=== PATIENT | female | born 1955 | race Caucasian/White ===

== ENCOUNTER → 2018-04-03 10:47 | Outpatient (CLI) | payer MEDICAID ==
[2015-07-27 10:47] VITALS: BMI 43.3
[~2018-04-03 10:47] MED LIST: ARMOUR THYROID90 MG PO; CATAPRES TTS-10.1 MG TD; GLUCOPHAGE1000 MG PO; HYDROCHLOROTH12.5 M1 PO; HYDROCODONE-APA1 TAB PO; KLONOPIN0.5 MG PO; MIRAPEX1 MG PO; MS CONTIN15 MG PO; NEURONTIN 300300 MG PO; NORVASC5 MG PO; OXYBUTYNIN CHLOR5 MG PO; ROBAXIN-750750 MG PO; SINEMET CR 50-1 EACH; VALIUM5 MG PO; VITAMIN B-12100 MCG PO; VITAMIN D10000 UNI1 PO; ZOLOFT100 MG PO; ZYLOPRIM100 MG PO
== END | disposition home or self-care (01) ==
LOC: D.HCCARDIO 10:30
DX: I20.9 Angina pectoris, unspecified (principal)

== ENCOUNTER 2018-04-18 06:16 | Outpatient (CLI) | payer MEDICAID ==
[~2018-04-18] VITALS: Ht 165.1 cm; Wt 112.3 kg
--- NOTE | ~2018-04-18 | HEMODYNAMI ---
PATIENT:KAYE ALAN MEDICAL RECORD: [id number] : 53 LOCATION:[facility] ADMISSION DATE: 04/18/18 Generatedon:04/18/20188:05 Patient name: KAYE ALAN Patient #: [id number] SSN: : 1955 Date of study: 04/18/2018 Page: Of Hemodynamic Procedure Report Patient Data Patient Demographics Procedure consent was obtained First Name: KAYE Gender: Female Last Name: DAYANNA : 1955 Middle Initial: L Age: 62 year(s) Patient #: [id number] Race: Unknown Additional ID: [id number] Contact details Address: [address] [place] [address] [address] State: [place] City: [facility] Zip code: [address] Past Medical History Allergies Allergen Reaction Date Comments Reported Penicillins 04/18/2018 Admission Admission Data Admission Date: 04/18/2018 Admission Time: 6:16 Height (in.): 65 BSA: 2.16 (m2) Height (cm.): 165.1 BMI: 40.77 (kg/m2) Weight (lbs.): 245 Weight (kg.): 111.13 Lab Results Lab Result Date: 04/18/2018 Lab Result Time: 0:00 Biochemistry Name Units Result Min Max BUN mg/dl 15 --(--*-)-- 7 18 Creatinine mg/dl 0.7 --(*---)-- 0.6 1.3 CBC Name Units Result Min Max Hemoglobin g/dl 12.1 *-(----)-- 13.5 17.5 Procedure Procedure Types Cath Procedure Diagnostic Procedure [facility] w/Coronaries Procedure Description Procedure Date Procedure Date: 04/18/2018 Procedure Start Time: 7:54 Procedure End Time: 8:04 Procedure Staff Name Function Travis Harry MD Performing Physician Ivis Fields RT Monitor Christi Arreola RT Scrub Kurtis Ortega RN Nurse Procedure Data Cath Procedure Fluoroscopy Diagnostic fluoroscopy Total fluoroscopy Time: 1.5 time: 1.5 min min Diagnostic fluoroscopy Total fluoroscopy dose: 576 dose: 576 mGy mGy Contrast Material Contrast Material Type Amount (ml) Isovue 300 43 Entry Location Entry Primary Successful Side Size Upsize Upsize Entry Closure Succes sful Closure Location (Fr) 1 (Fr) 2 (Fr) Remarks Device Remarks Femoral Right 5 Fr Exoseal artery Estimated blood loss: 5 ml Diagnostic catheters Device Type Used For End Catheter Placement MULTIPACK JL 4.0 5Fr Left Coronary catheter Angiography MULTIPACK 3DRC 5Fr Right Coronary catheter Angiography MULTIPACK Pigtail 5 Fr LV Angiography catheter Procedure Complications No complications Procedure Medications Medication Administration Route Dosage 0.9% NaCl I.V. 100 ml/hr Oxygen etCO2 Nasal cannula 2 l/min Heparin Flush Bag added to field 2 bags (1000units/500ml NS) Lidocaine 2% added to field 20 Versed I.V. 1 mg Fentanyl I.V. 50 mcg Versed I.V. 1 mg Fentanyl I.V. 50 mcg Hemodynamics Rest BSA: 2.16 (m2) HGB: 12.1 (g/dl) O2 Consumption: Estimated: 203.1 (ml/min) O2 Con sumption indexed: Estimated:94.03 (ml/min/m) Heart Rate: 70 (bpm) Pressure Samples Time Site Value (mmHg) Purpose Heart Use Rate(bpm) 8:00 LV 131/-6,7 EDP 73 8:01 LV 129/-6,9 Snapshot 73 8:01 AO 126/49(82) Pullback 73 8:01 LV 152/-9,25 Pullback 73 Gradients Valve Time Site 1 Site 2 Mean SEP/DFP Peak To Heart Use (mmHg) (sec/min) Peak Rate (mmHg) (bpm) Aortic 8:01 LV AO 23 25 26 73 152/-9,25 126/49(82) Calculations Valve P-P Mean Valve Index Valve Source Name Gradient Area Flow (cm2) Aortic 26 23 26 23 Snapshots Pre Cath Intra NCS Post Cath Vital Signs Time Heart Resp SPO2 etCO2 NIBP (mmHg) Rhythm Pain Sedation Rate (ipm) (%) (mmHg) Status Level (bpm) 7:47:23 67 17 97 0 152/74(125) NSR 0 (11) 10(A) , No pain 7:51:41 68 15 97 30.5 120/61(94) NSR 0 (11) 10(A) , No pain 7:55:55 67 14 98 38.7 132/59(100) NSR 0 (11) 10(A) , No pain 8:00:11 71 14 92 52.2 143/66(107) NSR 0 (11) 10(A) , No pain 8:04:29 72 12 98 48.4 134/70(109) NSR 0 (11) 10(A) , No pain Medications Time Medication Route Dose Verified Delivered Reason Notes Effe ctiveness by by 7:49:42 0.9% NaCl I.V. 100 Kurtis Krutis Per ml/hr Shannon Ortega physician RN RN 7:50:03 Oxygen etCO2 2 Kurtis Kurtis for low 02 Nasal l/min Lorigan Lorigan sats cannula RN RN 7:50:21 Heparin Flush added 2 Kurtis Kurtis used for Bag to bags Lorigan Lorigan procedure (1000units/500ml field RN RN NS) 7:50:32 Lidocaine 2% added 20ml Kurtis Kurtis for local to vial Lorigan Lorigan anesthetic field RN RN 7:50:42 Versed I.V. 1 mg Kurtis Kurtis for Lorigan Lorigan sedation RN RN 7:50:50 Fentanyl I.V. 50 Kurtis Kurtis for mcg Lorigan Lorigan sedation RN RN 7:59:26 Versed I.V. 1 mg Kurtis Kurtis for Lorigan Lorigan sedation RN RN 7:59:31 Fentanyl I.V. 50 Kurtis Kurtis for mcg Lorigan Lorigan sedation RN bond underwriter Log Time Note 7:21:22 Patient Height : 65 inches 7:21:25 Patient Weight : 245 lbs 7:21:28 Signed procedure consent form obtained from patient. 7:21:29 Diagnostic Cath status Elective 7:21:31 Time tracking: Regular hours (M-F 7:00 - 5:00) 7:21:34 Plan of Care:Hemodynamics will remain stable., Cardiac rhythm will remain stable., Comfort level will be maintained., Respiratory function will remain adequate., Patient/ family verbilizes understanding of procedure., Procedure tolerated without complication., Recovers from procedure without complications.. 7:21:41 H&P Date Dictated: 03/26/2018 Within 30 days and on chart., H&P Addendum completed by physician on day of procedure. (MUST COMPLETE FOR ALL OUTPATIENTS). 7:21:47 Patient allergic to Penicillins 7:23:24 Lab Result : BUN 15 mg/dl 7:23:24 Lab Result : Creatinine 0.7 mg/dl 7:23:24 Lab Result : Hemoglobin 12.1 g/dl 7:28:37 Ivis Fields RT(R) sent for patient. Start room use. 7:33:22 Patient received from Pre/Post Procedure Room to CCL 2 Alert and oriented. Tansferred to table in Supine position. 7:33:24 Warm blankets applied, and marialuisa hugger turned on for patient comfort. 7:33:25 Correct patient and procedure confirmed by team. 7:33:26 ECG and BP/O2 sat monitors applied to patient. 7:46:08 Vital chart was started 7:46:11 Rhythm: sinus rhythm 7:46:12 Full Disclosure recording started 7:46:13 Pre-procedure instructions explained to patient. 7:46:14 Pre-op teaching completed and patient verbalized understanding. 7:46:15 Family in patients room. 7:46:17 Patient NPO since Midnight. 7:46:19 Is the patient allergic to Iodine/contrast media? No. 7:46:21 Is patient on blood thinner?No 7:46:22 Patient diabetic? Yes. 7:46:23 If diabetic: On Metformin? Yes 7:46:25 If on Metformin: Last Dose? 04/17/2018 7:46:34 Previous problem with sedation/anesthesia? No ? 7:46:36 Snore? Yes 7:46:36 Sleep apnea? Yes 7:46:37 Deviated septum? No 7:46:38 Opens mouth fully? Yes 7:46:39 Sticks out tongue? Yes 7:46:41 Airway obstruction? No ? 7:46:44 Dentures? Yes IN 7:46:48 Pre procedure: right dorsailis pedis pulse 2+ Normal; easily identifiable; not easily obliterated 7:46:55 Pre procedure: right radial pulse 1+ Palpable, but thready & weak; easily obliterated 7:46:59 Patient pain scale 0/10 ?. 7:47:05 IV patent on arrival in left forearm with 0.9% NaCl at O. 7:47:07 Lab results completed and on chart. 7:47:11 Right groin area was prepped with chlora-prep and draped in sterile fashion 7:47:12 Alarms reviewed by R. N. 7:47:13 Sharps counted by scrub and verified by R.N. 7:47:16 Use device set Femoral Dx 7:47:17 ACIST Syringe (05995) opened to sterile field. 7:47:17 Bag Decanter (2002S) opened to sterile field. 7:47:18 Medline Cath Pack ([id number]) opened to sterile field. 7:47:18 DIAGNOSTIC WIRE .035 260cm J wire ([id number]) opened to sterile field. 7:47:19 ACIST Hand Control (06765) opened to sterile field. 7:47:20 ACIST Manifold (62909) opened to sterile field. 7:47:20 DIAGNOSTIC Multipack 5Fr catheter set ([id number]) opened to sterile field. 7:47:22 Tegaderm 4 x 4 (1626W) opened to sterile field. 7:47:24 SHEATH 5FR [place] (IXP356) opened to sterile field. 7:48:07 Final Timeout: patient, procedure, and site verified with staff and physician. All members of the team are in agreement. 7:48:08 Right groin site verified by team. 7:48:12 Fire Safety Assessment: A--An alcohol-based skin anteseptic being used preoperatively., C--Open oxygen or nitrous oxide is being used., D--An ESU, laser, or fiber-optic light is being used. 7:48:15 Physical assessment completed. ASA score P 2 - A patient with mild systemic disease as per Travis Harry MD. 7:48:17 Sedation plan: IV Moderate Sedation Medication:Versed, Fentanyl 7:49:42 0.9% NaCl 100 ml/hr I.V. was administered by Kurtis Ortega RN; Per physician; 7:50:03 Oxygen 2 l/min etCO2 Nasal cannula was administered by Kurtis Ortega RN; for low 02 sats; 7:50:20 Baseline sample Acquired. 7:50:21 Heparin Flush Bag (1000units/500ml NS) 2 bags added to field was administered by Kurtis Ortega RN; used for procedure; 7:50:32 Lidocaine 2% 20ml vial added to field was administered by Kurtis Lorigan RN; for local anesthetic; 7:50:42 Versed 1 mg I.V. was administered by Kurtis Oretga RN; for sedation; 7:50:50 Fentanyl 50 mcg I.V. was administered by Kurtis Ortega RN; for sedation; 7:53:24 Procedure started. 7:54:00 Local anesthetic to right femoral artery with Lidocaine 2% by Travis Harry MD.INITIAL ACCESS ONLY 7:55:13 A 5 Fr sheath was inserted into the Right Femoral artery 7:56:01 A MULTIPACK JL 4.0 5Fr catheter was advanced over the wire and used for Left Coronary Angiography. 7:58:37 Catheter removed. 7:58:42 A MULTIPACK 3DRC 5Fr catheter was advanced over the wire and used for Right Coronary Angiography. 7:58:49 Catheter removed. 7:58:54 A MULTIPACK Pigtail 5 Fr catheter was advanced over the wire and used for LV Angiography. 7:59:26 Versed 1 mg I.V. was administered by Kurtis Ortega RN; for sedation; 7:59:31 Fentanyl 50 mcg I.V. was administered by Kurtis Ortega RN; for sedation; 8:00:35 Zero performed for pressure channel P1 8:00:41 Zero performed for pressure channel P1 8:01:01 Zero performed for pressure channel P1 8:01:19 LV gram done using HOFFMAN 8:01:20 LV hemodynamics recorded. 8:01:22 Injector settings: Ml/sec: 10, Volume: 20, 8:01:28 EF : 55 % 8:01:49 Catheter removed. 8:02:01 Sheath removed intact; hemostasis achieved with Exoseal to the Right Femoral artery. 8:02:03 Procedure ended.(Physican Out) 8:02:14 Fluoroscopy time 01.50 minutes. 8:02:18 Fluoroscopy dose: 576 mGy 8:02:18 Flurop Dose total: 576 8:02:23 Contrast amount:Isovue 300 43ml. 8:02:24 Sharps counted by scrub and verified by R.N. 8:02:25 Insertion/operative site no bleeding no hematoma. 8:02:27 Post-op/insertion site Right Femoral artery dressed using a 4 x 4 and Tegaderm. 8:02:30 Post right femoral artery:stable, clean and dry 8:02:32 Post Procedure Pulses reassessed and unchanged 8:02:37 Post-procedure physical assessment completed. ASA score P 2 - A patient with mild systemic disease as per Travis Harry MD. 8:02:42 Post procedure rhythm: unchanged. 8:02:44 Estimated blood loss: 5 ml 8:02:45 Post procedure instruction explained to patient.Patient verbalizes understanding. 8:02:46 Patient needs reinforcement of post procedure teaching. 8:02:50 Procedure Complication : No complications 8:03:04 See physician's report for complete and final results. 8:03:09 EXOSEAL 5Fr (EX500) opened to sterile field. 8:03:26 Procedure and supply charges have been captured, reviewed, submitted and are correct. 8:04:32 Vital chart was stopped 8:04:34 Report given to Pre/Post Procedure Room. 8:04:37 Patient transfered to Pre/Post Procedure Room with Stretcher. 8:04:43 End room use (Document Last) 8:04:45 Procedure ended. 8:04:45 Full Disclosure recording stopped Device Usage Item Name Manufacture Quantity Catalog Hospital Part Current Minimal L ot# / Number Charge Number Stock Stock Serial# Code ACIST Acist 1 81070 656854 117909 [id number] 20 Syringe Medical (21494) Systems Inc Bag Microtek 1 2001S 273067 68037 192169 5 Decanter Medical Inc. () Medline Medline 1 [id number] 939008 20990 721546 5 Cath Pack ([id number]) DIAGNOSTIC St Warner 1 534557 176613 643940 790288 30 WIRE .035 260cm J wire (020633) ACIST Hand Acist 1 80581 184477 577696 375133 5 Control Medical (28056) Systems Inc ACIST Acist 1 13493 726787 835270 607929 5 Manifold Medical (49098) Systems Inc DIAGNOSTIC Cardinal 1 SG0616 654744 09831 704177 30 Multipack Health 5Fr catheter set (VR8089) Tegaderm 4 3M 1 1626W 148455 454900 137983 5 x 4 (1626W) SHEATH 5FR Terumo 1 ONV660 409388 880553 967124 5 [place] (YVA308) MULTIPACK Cardinal 1 685938 5 JL 4.0 5Fr Health catheter MULTIPACK Cardinal 1 436120 5 3DRC 5Fr Health catheter MULTIPACK Cardinal 1 547470 5 Pigtail 5 Health Fr catheter EXOSEAL 5Fr Cardinal 1 EX500 318271 930674 498857 10 (EX500) Health Signature Audit [place] Stage Time Signature Unsigned Intra-Procedure 04/18/2018 Ivis 8:04:59 AM Counts RT(R) Signatures Monitor : Ivis Signature : Counts RT Date : Time : [place] [id number] [place] [address]
[~2018-04-18 06:16] MED LIST changes: -KLONOPIN0.5 MG PO; -NEURONTIN 300300 MG PO; -VITAMIN D10000 UNI1 PO; -ZYLOPRIM100 MG PO
[2018-04-18] MEDS ORDERED: KLONOPIN0.5 MG PO (06:41)
[2018-04-18] MEDS ORDERED: NEURONTIN 300300 MG PO (06:43)
[2018-04-18] MEDS ORDERED: ZYLOPRIM100 MG PO (06:44)
[2018-04-18] MEDS ORDERED: VITAMIN D10000 UNI1 PO (06:46)
[2018-04-18 06:56] VITALS: BP 148/62; Ht 165.1 cm; Wt 112.3 kg
[2018-04-18 07:15] LABS: CALC OSMOLALITY 287 mosm/kg (275-300); CALCIUM 8.7 mg/dL (8.5-10.1); CARBON DIOXIDE 27.2 mmol/L (21.0-32.0); CHLORIDE - SERUM 104 mmol/L (98-107); CREATININE - SERUM 0.7 mg/dL (0.6-1.3); GLUCOSE 204 mg/dL (74-106); POTASSIUM - SERUM 4.5 mmol/L (3.5-5.1); SODIUM 141 mmol/L (136-145); UREA NITROGEN 15 mg/dL (7-18); eGFR NON AFRICAN AMERICAN 90 mL/min (90-120)
[2018-04-18 07:16] LABS: BASOPHILS 0.3 % (0-2); EOSINOPHILS 1.8 % (0-7); HEMATOCRIT 37.8 % (36.0-48.0); HEMOGLOBIN 12.1 g/dL (12-16); IMMATURE GRANULOCYTES 0.2 % (0-5); LYMPHOCYTES 32.2 % (15-50); MCH 28.3 pg (26.0-34.0); MCV 88.5 fL (80.0-100.0); MEAN PLATELET VOLUME 11.5 fL (7.4-10.4); MONOCYTES 5.8 % (2-11); NEUTROPHILS 59.7 % (40-80); PLATELET COUNT 112 10x3/uL (130-400); RBC 4.27 10x6/uL (4.00-5.40); RDW 13.9 % (11.5-14.5); WBC 6.1 10x3/uL (4.8-10.8)
--- NOTE | 2018-04-18 08:30 | NUR ---
RIGHT GROIN DRESSING C/D/I. NO S/S OF HEMATOMA NOTED. RIGHT PEDAL PULSE PALPABLE. VSS.
--- NOTE | 2018-04-18 09:00 | NUR ---
HEAD OF BED INC TO 30 DEGRESS. RIGHT GROIN DRESSING C/D/I. NO S/S OF HEMATOMA NOTED. RIGHT PEDAL PULSE PALPABLE. DR. GRAY ROUNDED AND SPOKE WITH PT AND PT'S FAMILY. PT SET UP WITH SANDWICH TRAY AND DRINK.
--- NOTE | 2018-04-18 09:26 | NUR ---
LEFT WRIST PIV D/C'D WITH CATH TIP INTACT. PT TOLERATED WELL. INSTRUCTED TO GET UP AND GET DRESSED. RIGHT GROIN DRESSING C/D/I. NO S/S OF HEMATOMA NOTED.
--- NOTE | 2018-04-18 09:45 | NUR ---
PT UP AND DRESSED. RIGHT GROIN DRESSING C/D/I. NO S/S OF HEMATOMA NOTED. PT TO RESTROOM. VOIDED WITHOUT DIFFICULTY.
--- NOTE | 2018-04-18 09:50 | NUR ---
PT TAKEN OUT TO VEHICLE BY WHEELCHAIR. NO S/S OF DISTRESS NOTED. ALL BELONGINGS AND PAPERWORK IN HAND.
== END 2018-04-18 09:50 | disposition home or self-care (01) ==
LOC: D.CATH 06:16
PROVIDERS: Internal Medicine Cardiovascular Disease
DX: I20.9 Angina pectoris, unspecified (principal); R94.39 Abnormal result of other cardiovascular function study

== ENCOUNTER 2018-08-13 19:26 | Inpatient (IN) | payer MEDICAID ==
[~2018-08-13] VITALS: Ht 165.1 cm; Wt 112.0 kg
[~2018-08-13 19:26] MED LIST changes: +KLONOPIN0.5 MG PO; +NEURONTIN 300300 MG PO; +VITAMIN D10000 UNI1 PO; +ZYLOPRIM100 MG PO
[2018-08-13 20:27] LABS: BASOPHILS 0.1 % (0-2); EOSINOPHILS 0 % (0-7); HEMATOCRIT 35.7 % (36.0-48.0); HEMOGLOBIN 11.8 g/dL (12-16); IMMATURE GRANULOCYTES 0.2 % (0-5); LYMPHOCYTES 13.3 % (15-50); MCH 28.6 pg (26.0-34.0); MCHC 33.1 g/dL (31.0-37.0); MCV 86.4 fL (80.0-100.0); MEAN PLATELET VOLUME 12.1 fL (7.4-10.4); MONOCYTES 7.9 % (2-11); NEUTROPHILS 78.5 % (40-80); PLATELET COUNT 109 10x3/uL (130-400); RBC 4.13 10x6/uL (4.00-5.40); RDW 13.2 % (11.5-14.5); WBC 8.6 10x3/uL (4.8-10.8)
[2018-08-13 20:38] LABS: ALBUMIN 2.6 g/dL (3.4-5.0); ALKALINE PHOSPHATASE 125 U/L (46-116); ALT (SGPT) 7 U/L (10-68); AMYLASE - SERUM 13 U/L (25-115); BILIRUBIN - TOTAL 0.98 mg/dL (0.2-1.3); CALCIUM 8.2 mg/dL (8.5-10.1); CARBON DIOXIDE 31.1 mmol/L (21.0-32.0); CHLORIDE - SERUM 93 mmol/L (98-107); CREATININE - SERUM 1.2 mg/dL (0.6-1.3); LIPASE 99 U/L (73-393); POTASSIUM - SERUM 3.5 mmol/L (3.5-5.1); PROTEIN - SERUM 7.1 g/dL (6.4-8.2); SODIUM 134 mmol/L (136-145); UREA NITROGEN 21 mg/dL (7-18); eGFR NON AFRICAN AMERICAN 48 mL/min (90-120)
[2018-08-13 20:43] LABS: CALC OSMOLALITY 289 mosm/kg (275-300); TROPONIN-I < 0.017 ng/mL (0.000-0.060)
[2018-08-13 20:45] LABS: GLUCOSE 438 mg/dL (74-106)
[2018-08-13 21:21] LABS: APPEARANCE CLEAR (CLEAR); SPECIFIC GRAVITY 1.015 (1.005-1.020)
[2018-08-13 21:22] LABS: COLOR ORANGE (YELLOW)
[2018-08-13 21:23] LABS: BACTERIA MANY /hpf (NONE SEEN); EPITHELIAL CELLS 0-5 /hpf (0-5); WHITE CELLS - URINE 25-50 /hpf (0-5)
[2018-08-14 00:14] VITALS: BP 110/62; BMI 41.1
--- NOTE | 2018-08-14 03:42 | NUR ---
PATIENT IN BED IV TO LEFT AC PATIENT NS PER ORDERS . ER NURSE REPORTED THAT BLOOD SURGER WAS ADRESS IN ER AND ER DOCTER WAS OK WITH IT. FAMILY IN ROOM GRAND DAUGHTER WAS TALKING TO PATIENT AND TOLD HER THAT IF SHE STATED "IF YOU DON'T STOP THAT- I WILL SLAP YOU LIKE I DO THEN GAVE A NAME THAT THIS STAFF DID NOT HEAR. GRAND DAUGHTER TOLD THIS NURSE THAT SHE NEEDS HER PARKINSON'S MED NOW. ATEMPTED TO EDUCATED FAMILY THAT WE HAVE TO GET ORDERS BEFOR WE CAN GIVE MEDS AND THE DR HAS TO APROVE THEN I CAN NOT JUST GO GET THEM AND GIVE MEDS, SHE STATED THAT YOU BETTER GET THE BOSS HERE THEN. CALLED CHARGE NURSE TO ROOM GRAND DAUGHTER REFUSED TO LET THIS NURSE FINISH EXPLAINING WHAT NEEDED TO HAPPEN. CHARGE NURSE CAME AND EXPLAINED THAT THE COMPUTER ANALYST SUPERVISOR WAS STILL IN THE HOSPITAL AND WE WOULD CALL FOR HIM TO SEE AND APROVED WHAT WAS NEEDED. THIS WAS DONE. LATER IN ADMIT THIS NURSE WAS ASKING PATIEN ABOUT SUCIDE PATIENT STATED THAT SHE HAD HAD TOUGHTS OF IT. GRAND DARUGHTER STATED YOU STOP TALKING LIKE THAT OR I WILL HIT YOU. EDUCATED GRANDDAUGHTER THAT STAFF HAS TO REPORT THAT, SHE STATED WHAT JOKING. EDUCATED HER THAT WE NEED HER TO TELL US IF SHE IS HAVING FEALINGS LIKE THAT, THE SON IN THE ROOM STATED YES AND IF SHE IS WE NEED TO GET HER HELP. COMPUTER ANALYST SUPERVISOR, CHARGE NURSE, AND SPECIAL MACHINE OPERATOR INFORMED OF WHAT GRANDDAUGHTER STATED ABOUT HITTING PATIENT. FAMILY LEFT AND GRANDDAUGHTER RETRUNED TO STAY WITH PT., CLOSED DOOR THIS STAFF OPENED DOOR AND EDUCATED HER THAT THE DOOR HAD TO STAY OPEN SO WE COULD SEE PT. SHE WAS A FALL RISK.
[2018-08-14 04:00] VITALS: BP 144/49
[2018-08-14 08:27] LABS: BASOPHILS 0 % (0-2); EOSINOPHILS 0 % (0-7); HEMATOCRIT 31.9 % (36.0-48.0); HEMOGLOBIN 10.7 g/dL (12-16); IMMATURE GRANULOCYTES 0.3 % (0-5); LYMPHOCYTES 6.4 % (15-50); MCHC 33.5 g/dL (31.0-37.0); MCV 86.4 fL (80.0-100.0); MEAN PLATELET VOLUME 11.9 fL (7.4-10.4); MONOCYTES 6.1 % (2-11); NEUTROPHILS 87.2 % (40-80); PLATELET COUNT 114 10x3/uL (130-400); RBC 3.69 10x6/uL (4.00-5.40); RDW 13.2 % (11.5-14.5)
[2018-08-14 08:34] LABS: ANION GAP 13.9 mmol/L (8-16); CARBON DIOXIDE 25.8 mmol/L (21.0-32.0); CREATININE - SERUM 1.1 mg/dL (0.6-1.3); MAGNESIUM - SERUM 1.4 mg/dL (1.8-2.4); PHOSPHOROUS 2.5 mg/dL (2.5-4.9); POTASSIUM - SERUM 3.7 mmol/L (3.5-5.1)
[2018-08-14 09:44] VITALS: BP 137/45
[2018-08-14 12:00] VITALS: BP 106/43
--- NOTE | 2018-08-14 12:57 | NUR ---
A SUICIDE ASSESSMENT WAS COMPLETED BY PT ONLY NEEDED RESOURCES AT DISCHARGE. ASSESSMENT SHOWED LOW RISK. REVIEWED RESOURCES WITH PT AND PT AND FAMILY VERBALIZED UNDERSTANDING. DR. OCHOA AND CHARGE NURSE MADE AWARE OF ASSESSMENT FINDINGS AND NO FURTHER ORDERS GIVEN.
--- NOTE | 2018-08-14 13:18 | NUR ---
PT LYING IN BED AAO X4 TO PERSON, PLACE, TIME, AND SITUATION. DENEIS NEEDS AT THIS TIME. CL IN REACH. SIDE RAILS UP X3 FOR PT SAEFTY. BED IN LOWEST POSITION.
[2018-08-14 14:14] VITALS: Ht 165.1 cm; Wt 112.0 kg
--- NOTE | 2018-08-14 16:18 | NUR ---
PT C/O CHEST PAIN- ALERTED DR FIERRO. TELEMETRY READING ST 108 AT THIS TIME
[2018-08-14 16:26] LABS: APPEARANCE TURBID (CLEAR); BILIRUBIN NEGATIVE (NEGATIVE); COLOR ORANGE (YELLOW); GLUCOSE 50 mg/dL (NEGATIVE); KETONE NEGATIVE (NEGATIVE); NITRITE NEGATIVE (NEGATIVE); PROTEIN 1+ mg/dL (NEGATIVE); UROBILINOGEN NORMAL (NORMAL)
[2018-08-14 16:28] LABS: BACTERIA MODERATE /hpf (NONE SEEN); EPITHELIAL CELLS 0-5 /hpf (0-5); WHITE CELLS - URINE 25-50 /hpf (0-5)
[2018-08-14 16:29] LABS: AMORPHOUS SEDIMENT >1+ /lpf (NONE SEEN)
[2018-08-14 17:13] LABS: CKMB 1.6 U/L (0.0-3.6); CREATINE KINASE 125 UL (21-215)
[2018-08-14 17:14] LABS: TROPONIN-I < 0.017 ng/mL (0.000-0.060)
[2018-08-14 18:35] VITALS: BP 148/86
[2018-08-14 20:00] VITALS: BP 122/72
--- NOTE | 2018-08-14 20:00 | NUR ---
ALERT SPASTIC UNCONTROLED MOVEMENT OF ALL EXTREMITIES, FAMILY MEMBERS STATES SHE HAS PARKINSONS BUT USUALLY NOT THIS BAD, SEE SHIFT ASSESSMENT, CALL LIGHT IN REACH, FAMILY MEMBERS STAYING AT BEDSIDE
[2018-08-14 22:55] LABS: CKMB 1.6 U/L (0.0-3.6); CREATINE KINASE 131 UL (21-215); TROPONIN-I < 0.017 ng/mL (0.000-0.060)
[2018-08-15 04:00] VITALS: BP 164/78
[2018-08-15 05:06] LABS: BASOPHILS 0.1 % (0-2); HEMATOCRIT 28.5 % (36.0-48.0); HEMOGLOBIN 9.4 g/dL (12-16); IMMATURE GRANULOCYTES 0.2 % (0-5); LYMPHOCYTES 14.5 % (15-50); MEAN PLATELET VOLUME 11.7 fL (7.4-10.4); MONOCYTES 8.5 % (2-11); NEUTROPHILS 75.7 % (40-80); PLATELET COUNT 110 10x3/uL (130-400); RBC 3.24 10x6/uL (4.00-5.40); RDW 13.3 % (11.5-14.5); WBC 9.3 10x3/uL (4.8-10.8)
[2018-08-15 06:14] LABS: CALCIUM 7.7 mg/dL (8.5-10.1); CARBON DIOXIDE 25.7 mmol/L (21.0-32.0); CHLORIDE - SERUM 101 mmol/L (98-107); CKMB 1.8 U/L (0.0-3.6); CREATINE KINASE 97 UL (21-215); MAGNESIUM - SERUM 1.6 mg/dL (1.8-2.4); PHOSPHOROUS 2.8 mg/dL (2.5-4.9); POTASSIUM - SERUM 3.4 mmol/L (3.5-5.1); SODIUM 136 mmol/L (136-145); eGFR NON AFRICAN AMERICAN 59 mL/min (90-120)
[2018-08-15 06:15] LABS: CALC OSMOLALITY 279 mosm/kg (275-300); GLUCOSE 154 mg/dL (74-106); TROPONIN-I < 0.017 ng/mL (0.000-0.060); UREA NITROGEN 26 mg/dL (7-18)
--- NOTE | 2018-08-15 07:15 | NUR ---
PT RESTING IN BED, EYES OPEN. NO C/O PAIN. NO S/S OF ACUTE DISTRESS NOTED. ALERT AND ORIENTED. BED ALARM ON. IV TO LEFT AC, NS INFUSING @ 100ML/HR. PT ACHS. ON 2L O2, NC. ON TELEMETRY 72 SR. POTASSIUM 3.4 THIS AM, GAVE 40 MEQ POTASSIUM PER ELECTROLYTE PROTOCOL AND MAG 1.7 GAVE 400MG MAGNESIUM PER PROTOCOL. PT DENIES ANYTHING FURTHER AT THIS TIME. CALL LIGHT IN REACH. WILL CONTINUE TO MONITOR.
[2018-08-15 09:38] VITALS: BP 142/60
--- NOTE | 2018-08-15 11:44 | MORECARE ---
CASE MANAGEMENT DISCHARGE SUMMARY PATIENT: KAYE ALAN UNIT: [id number] ADM DATE: 08/13/18 AGE: 62 : 54 SEX: F ROOM/BED: D.2230 AUTHOR: JEREMÍAS LACEY PHYSICIAN: REFERRING PHYSICIAN: MIRLANDE RUTLEDGE MD DATE OF SERVICE: 08/15/18 Discharge Plan Patient Name: KAYE ALAN Facility: [facility]:[place] : 1955 Planned Disposition: Home Anticipated Discharge Date: Discharge Date: Expected LOS: Initial Reviewer: [email or web address] Initial Review Date: 08/15/2018 Generated: 08/15/18 12:43 pm Patient Name: KAYE ALAN Page 45931 at 1144 All edits/amendments must be made on the electronic document DICTATION DATE: 08/15/18 1143 RN CRITICAL CARE: RUDY 08/15/18 1143 RPT#: [id number] DC DATE: STATUS: ADM IN [facility] [address] [place] [address] END OF REPORT
--- NOTE | 2018-08-15 11:58 | MORECARE ---
CASE MANAGEMENT DISCHARGE SUMMARY PATIENT: KAYE ALAN UNIT: [id number] ADM DATE: 08/13/18 AGE: 62 : 54 SEX: F ROOM/BED: D.2230 AUTHOR: [email or web address] PHYSICIAN: REFERRING PHYSICIAN: MIRLANDE RUTLEDGE MD DATE OF SERVICE: 08/15/18 Discharge Plan Patient Name: KAYE ALAN Facility: [facility]:[place] : 1955 Planned Disposition: Home Anticipated Discharge Date: Discharge Date: Expected LOS: Initial Reviewer: [email or web address] Initial Review Date: 08/15/2018 Generated: 08/15/18 12:57 pm Comments DCP- Discharge Planning Updated by [email or web address]: Dorys Buchanan on 08/15/18 10:[address] Patient Name: KAYE ALAN Admission Status: ER Accout number: [id number] Admission Date: 08-13-2018 : 1955 Admission Diagnosis: Attending: AAMIR, Current LOS: 2 Anticipated DC Date: Planned Disposition: Home Primary Insurance: MEDICAID [place] Discharge Planning Comments: CM met with patient to complete initial dc planning assessment. CM educated patient on the CM role and verbal consent given by patient to complete assessment. Patient lives at home alone. Her adopted daughter (biological grand daughter, Julissa) states that for the past few months someone has been staying with her or she has gone to family's house. Julissa states that she is never alone. At discharge patient plans to return and feels this is a safe discharge. CM discussed availability of home health, rehab services, and medical equipment. Patient denied known discharge needs at this time. Julissa states they are doing some work on the patient's house right now and then will have a private care information associate to assist with personal care. States she has already gone to [facility] and started the process. CM will continue to follow and will assist as needed with dc plans/needs. Pantograph Ii Engraver: Dorys Buchanan DCPIA - Discharge Planning Initial Assessment Updated by [email or web address]: Dorys Buchanan on 08/15/18 11:51 am * Is the patient Alert and Oriented? Yes * How many steps to enter\exit or inside your home? Ramp/0 * PCP Dr. Maria - she sees Narda Mejia * [facility] * Preadmission Environment Home with Family * ADLs Partial Dependent * Partial ADLs (Assistance needed) Ambulation * Equipment Other Shower Chair Walker * Other Equipment Rollator walker * List name and contact numbers for known caregivers / representatives who currently or will assist patient after discharge: Julissa Alan - DTR - [phone] Juan Alan - [facility] [phone] Dayna Galeana - DT - [phone] * Verbal permission to speak to the caregivers and representatives has been obtained from the patient. Yes * Community resources currently utilized None * Additional services required to return to the preadmission environment? No * Can the patient safely return to the preadmission environment? Yes * Has this patient been hospitalized within the prior 30 days at any hospital? No Last DP export: 08/15/18 10:44 a Patient Name: KAYE ALAN Page [phone] at 1158 All edits/amendments must be made on the electronic document DICTATION DATE: 08/15/18 1157 GRINDING AND SPRAYING SUPERVISOR: RUDY 08/15/18 1157 RPT#: [id number] DC DATE: STATUS: ADM IN [facility] [address] [place] [address] END OF REPORT
[2018-08-15 14:11] VITALS: BP 129/50
--- NOTE | 2018-08-15 17:02 | NUR ---
I have reviewed this patient and I concur with the Shift Assessment completed by the Licensed Practical Nurse today this shift.
[2018-08-15 17:56] VITALS: BP 140/41
--- NOTE | 2018-08-15 18:30 | NUR ---
PT RESTING IN BED, EYES OPEN. NO C/O PAIN. NO S/S OF ACUTE DISTRESS NOTED. FAMILY AT BEDSIDE. PT DENIES ANYTHING FURTHER AT THIS TIME. CALL LIGHT IN REACH. WILL CONTINUE TO MONITOR.
--- NOTE | 2018-08-15 20:00 | NUR ---
ALERT SITTING UP IN BED, REPORTS FEELING MUCH BETTER, FAMILY AT BEDSIDE, NO NEEDS VOICED, CALL LIGHT IN REACH
[2018-08-15 21:08] VITALS: BP 124/62
[2018-08-16 04:58] VITALS: BP 124/56
[2018-08-16 05:10] LABS: BASOPHILS 0.1 % (0-2); EOSINOPHILS 1.8 % (0-7); HEMATOCRIT 30.7 % (36.0-48.0); IMMATURE GRANULOCYTES 0.2 % (0-5); LYMPHOCYTES 20.3 % (15-50); MCH 28.3 pg (26.0-34.0); MCHC 32.6 g/dL (31.0-37.0); MEAN PLATELET VOLUME 12.1 fL (7.4-10.4); MONOCYTES 5.4 % (2-11); NEUTROPHILS 72.2 % (40-80); RBC 3.53 10x6/uL (4.00-5.40); RDW 13.1 % (11.5-14.5); WBC 9.1 10x3/uL (4.8-10.8)
[2018-08-16 05:12] LABS: PLATELET COUNT 149 10x3/uL (130-400)
[2018-08-16 05:20] LABS: CALC OSMOLALITY 284 mosm/kg (275-300); CALCIUM 8.3 mg/dL (8.5-10.1); CARBON DIOXIDE 28.1 mmol/L (21.0-32.0); CHLORIDE - SERUM 103 mmol/L (98-107); CREATININE - SERUM 0.8 mg/dL (0.6-1.3); GLUCOSE 181 mg/dL (74-106); MAGNESIUM - SERUM 1.8 mg/dL (1.8-2.4); PHOSPHOROUS 2.3 mg/dL (2.5-4.9); POTASSIUM - SERUM 3.9 mmol/L (3.5-5.1); SODIUM 139 mmol/L (136-145); eGFR NON AFRICAN AMERICAN 77 mL/min (90-120)
[2018-08-16 05:21] LABS: UREA NITROGEN 17 mg/dL (7-18)
--- NOTE | 2018-08-16 08:00 | NUR ---
ALERT AND ORIENTED AND UP WITH SBA TO BATHROOM. DENIES ANY PAIN OR DISCOMFORT AT THIS TIME. LUNGS CTA. ABD. SOFT WITH BS NOTED. TELEMETRY INTACT AND DENIES ANY CP OR DISCOMFORT. ENCOURAGED TO USE CALL LIGHT FOR ASSIST.
[2018-08-16 08:45] VITALS: BP 109/65
--- NOTE | 2018-08-16 13:26 | NUR ---
NUTRITION F/U PT TOLERATING DIABETIC DIET WITH ~ 75% INTAKE RECENT MEALS. WILL CONTINUE TO PROVIDE DIET, MONITOR PO INTAKE. RD FOLLOWING
[2018-08-16 14:37] VITALS: BP 141/60
[2018-08-16 18:03] VITALS: BP 144/61
--- NOTE | 2018-08-16 20:00 | NUR ---
ALERT SITTING UP IN BED, FAMILY AT BEDSIDE, REPORTS BACK HURTING REQUESTING MORPHINE, GIVEN ORDERED, SEE SHIFT ASSESSMENT, CALL LIGHT IN REACH
[2018-08-16 21:22] VITALS: BP 129/54
[2018-08-17 05:14] VITALS: BP 108/83
[2018-08-17 06:25] LABS: BASOPHILS 0.2 % (0-2); EOSINOPHILS 3.1 % (0-7); HEMOGLOBIN 9.2 g/dL (12-16); IMMATURE GRANULOCYTES 0.2 % (0-5); MCH 28.4 pg (26.0-34.0); MCHC 31.7 g/dL (31.0-37.0); MEAN PLATELET VOLUME 12.1 fL (7.4-10.4); MONOCYTES 7.6 % (2-11); NEUTROPHILS 60.9 % (40-80); PLATELET COUNT 162 10x3/uL (130-400); RBC 3.24 10x6/uL (4.00-5.40); RDW 13.5 % (11.5-14.5)
[2018-08-17 06:31] LABS: MCV 89.5 fL (80.0-100.0); WBC 5.4 10x3/uL (4.8-10.8)
[2018-08-17 06:58] LABS: CALC OSMOLALITY 288 mosm/kg (275-300); CARBON DIOXIDE 25.7 mmol/L (21.0-32.0); CHLORIDE - SERUM 106 mmol/L (98-107); CREATININE - SERUM 0.7 mg/dL (0.6-1.3); GLUCOSE 181 mg/dL (74-106); MAGNESIUM - SERUM 1.6 mg/dL (1.8-2.4); POTASSIUM - SERUM 3.6 mmol/L (3.5-5.1); SODIUM 142 mmol/L (136-145); UREA NITROGEN 15 mg/dL (7-18); eGFR NON AFRICAN AMERICAN 90 mL/min (90-120)
[2018-08-17 07:01] LABS: PHOSPHOROUS 3.1 mg/dL (2.5-4.9)
[2018-08-17 08:47] VITALS: BP 92/43
[2018-08-17 12:41] VITALS: BP 101/50
[2018-08-17 18:07] VITALS: BP 149/55
--- NOTE | 2018-08-17 19:00 | NUR ---
REPORT RECEIVED AND CARE OF PT ASSUMED. PT LYING IN MID WILSON'S POSITION WITH EYES CLOSED. TELEMETRY IN PLACE AND READING SR AT THIS ASSESSMENT. IV TO LEFT FA SALINE LOCKED. WILL MONITOR FOR NEEDS.
[2018-08-17 20:00] VITALS: BP 120/48
--- NOTE | 2018-08-17 20:30 | NUR ---
HS SNACK GIVEN PER DIET ORDER: VIVIAN CRACKERS AND MILK.
--- NOTE | 2018-08-17 22:18 | NUR ---
HS MEDICATIONS GIVEN. FSBS 110 THIS CHECK REQUIRING NO COVERAGE PER SLIDING SCALE.
[2018-08-18] VITALS: BP 125/56
--- NOTE | 2018-08-18 00:31 | NUR ---
PT C/O "PAIN ALL OVER" AND WANTS TO SLEEP. GAVE ROBAXIN, TYLENOL, AND ATIVAN PO PER PRN ORDERS. WILL MONITOR FOR EFFECTIVENESS.
[2018-08-18 04:00] VITALS: BP 130/61
[2018-08-18 05:15] LABS: BASOPHILS 0.2 % (0-2); HEMATOCRIT 28.3 % (36.0-48.0); HEMOGLOBIN 9.2 g/dL (12-16); IMMATURE GRANULOCYTES 0.7 % (0-5); LYMPHOCYTES 31.7 % (15-50); MCH 28.3 pg (26.0-34.0); MCHC 32.5 g/dL (31.0-37.0); MEAN PLATELET VOLUME 11.8 fL (7.4-10.4); MONOCYTES 7.6 % (2-11); NEUTROPHILS 57.8 % (40-80); PLATELET COUNT 189 10x3/uL (130-400); RBC 3.25 10x6/uL (4.00-5.40); RDW 13.3 % (11.5-14.5); WBC 4.6 10x3/uL (4.8-10.8)
[2018-08-18 05:17] LABS: MCV 87.1 fL (80.0-100.0)
[2018-08-18 05:41] LABS: CALC OSMOLALITY 287 mosm/kg (275-300); CALCIUM 8.1 mg/dL (8.5-10.1); CARBON DIOXIDE 26.1 mmol/L (21.0-32.0); CHLORIDE - SERUM 108 mmol/L (98-107); CREATININE - SERUM 0.7 mg/dL (0.6-1.3); GLUCOSE 175 mg/dL (74-106); MAGNESIUM - SERUM 1.3 mg/dL (1.8-2.4); PHOSPHOROUS 4.9 mg/dL (2.5-4.9); POTASSIUM - SERUM 3.7 mmol/L (3.5-5.1); SODIUM 143 mmol/L (136-145); UREA NITROGEN 11 mg/dL (7-18); eGFR NON AFRICAN AMERICAN 90 mL/min (90-120)
[2018-08-18 08:49] VITALS: BP 124/70
--- NOTE | 2018-08-18 09:00 | NUR ---
ALERT AND ORIENTED UP TO CHAIR WITH PT ASSIST. ABDOMEN SOFT WITH BS NOTED AND HYPOACTIVEX4. FLATULANCE NOTED. IVF INFUSING AT PRESCRIBED RATE. ELECTROLYTE PROTOCOL IN PLACE FOR LOW MAGNIESIUM. DENIES ANY PAIN OR DISCOMFORT AT THIS TIME AND ENCOURAGED TO USE CALL LIGHT FOR ASSIST.
[2018-08-18 12:39] VITALS: BP 150/73
--- NOTE | 2018-08-18 19:00 | NUR ---
REPORT RECEIVED AND CARE OF PT ASSUMED. PT LYING IN LOW WILSON'S POSITION VISITING WITH FAMILY MEMBERS. IV IN LEFT FA SALINE LOCKED. TELEMETRY IN PLACE AND READING SR AT THIS ASSESSMENT. WILL MONITOR FOR NEEDS.
[2018-08-18 20:00] VITALS: BP 153/69
--- NOTE | 2018-08-18 21:00 | NUR ---
PT SHOWERED AND ALL LINENS AND GOWN CHANGED. TRASH EMPTIED AND HOLLI CLEAMED.
--- NOTE | 2018-08-18 21:50 | NUR ---
HS MEDICATIONS GIVEN TO INCLUDE ROBAXIN FOR PAIN / SLEEP. FSBS 150 THIS CHECK AND PT DECLINED SLIDING SCALE. WILL CONTINUE TO MONITOR FOR NEEDS.
[2018-08-19] VITALS: BP 102/67
[2018-08-19 04:00] VITALS: BP 100/59
[2018-08-19 05:27] LABS: BASOPHILS 0.2 % (0-2); EOSINOPHILS 2.5 % (0-7); HEMATOCRIT 30.1 % (36.0-48.0); HEMOGLOBIN 9.6 g/dL (12-16); IMMATURE GRANULOCYTES 0.6 % (0-5); LYMPHOCYTES 27.2 % (15-50); MCH 27.8 pg (26.0-34.0); MCHC 31.9 g/dL (31.0-37.0); MCV 87.2 fL (80.0-100.0); MEAN PLATELET VOLUME 11.5 fL (7.4-10.4); MONOCYTES 6.5 % (2-11); RBC 3.45 10x6/uL (4.00-5.40); RDW 13.7 % (11.5-14.5); WBC 5.3 10x3/uL (4.8-10.8)
[2018-08-19 05:59] LABS: CALC OSMOLALITY 286 mosm/kg (275-300); CALCIUM 8.6 mg/dL (8.5-10.1); CARBON DIOXIDE 26.1 mmol/L (21.0-32.0); CHLORIDE - SERUM 106 mmol/L (98-107); CREATININE - SERUM 0.7 mg/dL (0.6-1.3); GLUCOSE 210 mg/dL (74-106); MAGNESIUM - SERUM 1.3 mg/dL (1.8-2.4); POTASSIUM - SERUM 3.8 mmol/L (3.5-5.1); SODIUM 142 mmol/L (136-145); eGFR NON AFRICAN AMERICAN 90 mL/min (90-120)
[2018-08-19 06:02] LABS: UREA NITROGEN 7 mg/dL (7-18)
[2018-08-19 06:06] LABS: PLATELET COUNT 229 10x3/uL (130-400)
--- NOTE | 2018-08-19 08:00 | NUR ---
PT RESTING IN BED WITH FAMILY AT BEDSIDE. NO ACUTE DISTRESS NOTED. RESP EVEN AND UNLABORED. DENIES PAIN AT THIS TIME. SALINE LOC TO LEFT FOREARM, SITE WITHOUT REDNESS OR EDEMA. EASILY FLUSHES. DENIES FURTHER NEEDS AT THIS TIME. CL WITHIN REACH. ENCOURAGED TO CALL WITH NEEDS. CONTINUE POC
[2018-08-19 08:16] VITALS: BP 130/76
[2018-08-19] MEDS ORDERED: LEVAQUIN750 MG PO (11:01)
--- NOTE | 2018-08-19 11:36 | MORECARE ---
CASE MANAGEMENT DISCHARGE SUMMARY PATIENT: KAYE AALN UNIT: [id number] ADM DATE: 08/13/18 AGE: 62 : 53 SEX: F ROOM/BED: D.2230 AUTHOR: ABHIJITDOC PHYSICIAN: REFERRING PHYSICIAN: MIRLANDE RUTLEDGE MD DATE OF SERVICE: 08/19/18 Discharge Plan Patient Name: KAYE ALAN Facility: [facility]:[place] : 1955 Planned Disposition: Home Anticipated Discharge Date: Discharge Date: Expected LOS: Initial Reviewer: [email or web address] Initial Review Date: 08/15/2018 Generated: 08/19/18 12:36 pm Comments DCP- Discharge Planning Updated by [email or web address]: Guerita Salmon on 08/19/18 10:[address] Patient Name: KAYE ALAN Encounter No: [id number] : 1955 Primary Insurance: MEDICAID [place] Anticipated DC Date: Planned Disposition: Home External Planned Provider: : DCP follow-up note: Patient and family in agreement with discharge plan. No changes to plan. Case management will follow and assist as needed. Guerita Salmon DCP- Discharge Planning Updated by [email or web address]: Dorys Buchanan on 08/15/18 10:[address] Patient Name: KAYE ALAN Admission Status: ER Accout number: [id number] Admission Date: 08-13-2018 : 1955 Admission Diagnosis: Attending: AAMIR, Current LOS: 2 Anticipated DC Date: Planned Disposition: Home Primary Insurance: MEDICAID [place] Discharge Planning Comments: CM met with patient to complete initial dc planning assessment. CM educated patient on the CM role and verbal consent given by patient to complete assessment. Patient lives at home alone. Her adopted daughter (biological grand daughter, Julissa) states that for the past few months someone has been staying with her or she has gone to family's house. Julissa states that she is never alone. At discharge patient plans to return and feels this is a safe discharge. CM discussed availability of home health, rehab services, and medical equipment. Patient denied known discharge needs at this time. Julissa states they are doing some work on the patient's house right now and then will have a private professional healthcare representative to assist with personal care. States she has already gone to [facility] and started the process. CM will continue to follow and will assist as needed with dc plans/needs. Talent Assistant: Dorys Buchanan DCPIA - Discharge Planning Initial Assessment Updated by [email or web address]: Dorys Buchanan on 08/15/18 11:51 am * Is the patient Alert and Oriented? Yes * How many steps to enter\exit or inside your home? Ramp/0 * PCP Dr. Maria - she sees Narda Mejia * Pharmacy [place] * Preadmission Environment Home with Family * ADLs Partial Dependent * Partial ADLs (Assistance needed) Ambulation * Equipment Other Shower Chair Walker * Other Equipment Rollator walker * List name and contact numbers for known caregivers / representatives who currently or will assist patient after discharge: Julsisa Alan - DTR - [phone] Juan Alan [facility] - [phone] Dayna Galeana - [facility] [place] 2[place] - [phone] * Verbal permission to speak to the caregivers and representatives has been obtained from the patient. Yes * Community resources currently utilized None * Additional services required to return to the preadmission environment? No * Can the patient safely return to the preadmission environment? Yes * Has this patient been hospitalized within the prior 30 days at any hospital? No Last DP export: 08/15/18 10:57 a Patient Name: KAYE ALAN Page [id number] at 1136 All edits/amendments must be made on the electronic document DICTATION DATE: 08/19/18 113 ACCOUNTING OFFICER: RUYD 08/19/18 1135 RPT#: [id number] DC DATE: STATUS: ADM IN [facility] [address] [place] [address] END OF REPORT
[2018-08-19 12:18] VITALS: BP 133/51
--- NOTE | 2018-08-19 15:38 | MORECARE ---
CASE MANAGEMENT DISCHARGE SUMMARY PATIENT: KAYE ALAN UNIT: [id number] ADM DATE: 08/13/18 AGE: 62 : 53 SEX: F ROOM/BED: D.2230 AUTHOR: ABHIJITDOC PHYSICIAN: REFERRING PHYSICIAN: MIRLANDE RUTLEDGE MD DATE OF SERVICE: 08/19/18 Discharge Plan Patient Name: KAYE ALAN Facility: [facility]:[place] : 1955 Planned Disposition: Home Anticipated Discharge Date: Discharge Date: 08/19/2018 Expected LOS: Initial Reviewer: [email or web address] Initial Review Date: 08/15/2018 Generated: 08/19/18 4:38 pm Comments DCP- Discharge Planning Updated by [email or web address]: Guerita Salmon on 08/19/18 10:[address] Patient Name: KAYE ALAN Encounter No: [id number] : 1955 Primary Insurance: MEDICAID [place] Anticipated DC Date: Planned Disposition: Home External Planned Provider: : DCP follow-up note: Patient and family in agreement with discharge plan. No changes to plan. Case management will follow and assist as needed. Guerita Salmon DCP- Discharge Planning Updated by [email or web address]: Dorys Buchanan on 08/15/18 10:[address] Patient Name: KAYE ALAN Admission Status: ER Accout number: [id number] Admission Date: 08-13-2018 : 1955 Admission Diagnosis: Attending: AAMIR, Current LOS: 2 Anticipated DC Date: Planned Disposition: Home Primary Insurance: MEDICAID [place] Discharge Planning Comments: CM met with patient to complete initial dc planning assessment. CM educated patient on the CM role and verbal consent given by patient to complete assessment. Patient lives at home alone. Her adopted daughter (biological grand daughter, Julissa) states that for the past few months someone has been staying with her or she has gone to family's house. Julissa states that she is never alone. At discharge patient plans to return and feels this is a safe discharge. CM discussed availability of home health, rehab services, and medical equipment. Patient denied known discharge needs at this time. Julissa states they are doing some work on the patient's house right now and then will have a private medicare biller to assist with personal care. States she has already gone to [facility] and started the process. CM will continue to follow and will assist as needed with dc plans/needs. Twisting Frame Operator: Dorys Dewayne DCPIA - Discharge Planning Initial Assessment Updated by [email or web address]: Dorys Buchanan on 08/15/18 11:51 am * Is the patient Alert and Oriented? Yes * How many steps to enter\exit or inside your home? Ramp/0 * PCP Dr. Maria - she sees Narda Mejia * Pharmacy [place] * Preadmission Environment Home with Family * ADLs Partial Dependent * Partial ADLs (Assistance needed) Ambulation * Equipment Other Shower Chair Walker * Other Equipment Rollator walker * List name and contact numbers for known caregivers / representatives who currently or will assist patient after discharge: Julissa Alan - [facility] - [phone] Juan Alan [facility] - [phone] Dayna Galeana [facility] - [phone] * Verbal permission to speak to the caregivers and representatives has been obtained from the patient. Yes * Community resources currently utilized None * Additional services required to return to the preadmission environment? No * Can the patient safely return to the preadmission environment? Yes * Has this patient been hospitalized within the prior 30 days at any hospital? No Last DP export: 08/19/18 10:36 a Patient Name: KAYE ALAN Page 23945 at 1538 All edits/amendments must be made on the electronic document DICTATION DATE: 08/19/181536 MINE MANAGER: RUDY 08/19/181536 RPT#: [id number] DC DATE:08/19/18 STATUS: DIS IN [facility] [address] [place] [address] END OF REPORT
[2018-08-19 18:07] LABS: AEROBE ID Final report (())
== END 2018-08-19 15:08 | disposition home or self-care (01) | DRG 638 ==
LOC: D.ER 19:26 → D.MS 22:43
PROVIDERS: Family Medicine; ADMIT Family Medicine; ATTEND Family Medicine
DX: E11.65 Type 2 diabetes mellitus with hyperglycemia (principal); N10 Acute pyelonephritis; G20 Parkinson's disease; D64.9 Anemia, unspecified; I10 Essential (primary) hypertension; E03.9 Hypothyroidism, unspecified; F41.8 Other specified anxiety disorders